=== PATIENT | female | born 1960 | race American Indian/Alaskan Native ===

== ENCOUNTER 2020-12-07 22:06 | Emergency (ER) | payer SELFPAY ==
[2020-12-07 22:15] VITALS: BP 120/79; PULSE 95; RESP 20; TEMP 36.9; O2SAT 100
[2020-12-07 22:23] VITALS: BP 120/79; PULSE 95; RESP 18; TEMP 36.3; O2SAT 100
[2020-12-07 22:49] VITALS: RESP 18
[2020-12-07 22:53] VITALS: BP 128/78; PULSE 72; RESP 18; O2SAT 98
[2020-12-07 23:02] LABS: Basophils Percent Auto 0.5 % (0.2-1.2); Eosinophils Percent Auto 0.9 % (0-4.4); Hematocrit 42.7 % (37.0-47.0); Immature Granulocyte Absolute 0.01 K/mm3 (0.00-0.031); Immature Granulocyte Percent A 0.2 % (0-0.5); Lymphocytes Absolute Auto 2.01 K/mm3 (0.9-3.2); Lymphocytes Percent Auto 47.6 % (18.3-44.2); Mean Corpuscular HGB Conc 32.8 g/dl (32-36); Mean Corpuscular Volume 91.4 fl (80-100); Monocytes Absolute Auto 0.6 K/mm3 (0.1-0.6); Monocytes Percent Auto 13.7 % (2.6-8.5); Neutrophils Absolute Auto 1.6 K/mm3 (1.3-6.7); Neutrophils Percent Auto 37.1 % (45.5-73.1); Platelet Count Result 372 k/mm3 (150-375); Red Blood Count 4.67 M/mm3 (4.2-5.4); Red Cell Distribution Width 12.4 % (11.5-14.5); White Blood Count 4.2 K/mm3 (4.5-10.0)
[2020-12-07 23:15] LABS: Alanine Aminotransferase 57 U/L (4-35); Albumin Level 4.1 g/dL (3.5-5.1); Alkaline Phosphatase 80 U/L (38-126); Anion Gap 3 mmol/L (8-16); Aspartate Amino Transferase 50 U/L (14-36); Bilirubin,Total 0.3 mg/dL (0.2-1.3); Blood Urea Nitrogen 11 mg/dL (7-17); Carbon Dioxide 31 mmol/L (22-30); Chloride 104 mmol/L (98-107); Estimated CRCL calculation 57 ml/min; Estimated Glomerular Filt Rate > 60; Glucose 98 mg/dL (65-105); Sodium 138 mmol/L (137-145)
--- NOTE | 2020-12-07 23:27 | ECG_ITS ---
Measurements Intervals [place] Rate: 63 P: 60 SC: 170 QRS: 76 QRSD: 81 T: 70 QT: 414 QTc: 424 Interpretive Statements SINUS RHYTHM INCOMPLETE RIGHT BUNDLE BRANCH BLOCK BORDERLINE ECG Electronically Signed On 12-08-2020 7:02:17 CDT by Guevara Pulido D.O.
[2020-12-07 23:30] LABS: Atypical Lymphocytes Present; Platelet Estimate Adequate (Adequate)
[2020-12-08] VITALS: BP 150/82; PULSE 72; RESP 16; O2SAT 97
[2020-12-08] MEDS: SODIUM CHLORIDE 0.9% IV 1,000 ML 999 ML IV CONT (00:54)
[2020-12-08 01:03] VITALS: BP 119/67; PULSE 80; RESP 28; O2SAT 96
[2020-12-08 01:16] LABS: Add Urine Microscopic? YES; Appearance Urine Cloudy (Clear); Bacteria Urine Trace /hpf; Bilirubin Urine Negative (Negative); Blood Urine Negative (Negative); Color Urine Yellow (Yellow); Glucose Urine UA Negative (Negative); Ketones Urine Negative (Negative); Leukocyte Esterase Ur Negative LEU/UL (Negative); Mucus Urine Rare /lpf; Nitrate Urine Negative (Negative); Protein Urine Negative (Negative); RBC Urine 0-2 /hpf (0-2); Specific Grav Ur 1.017 (1.001-1.035); Squamous Epithelial Cell Urine Moderate /hpf (Few); Urobilinogen Urine Negative mg/dL (<2.0); WBC Urine 0-3 /hpf
[2020-12-08 01:21] LABS: Lipase 201 U/L (23-300); Magnesium 2.1 mg/dL (1.6-2.3)
[2020-12-08 01:34] LABS: Troponin I < 0.012 ng/mL (0.000-0.034)
--- NOTE | 2020-12-08 01:42 | ED.GENADULT ---
HPI - General Adult General Chief complaint: Unspecified Stated complaint: Feel weird when I stand up Time Seen by Provider: 12/07/20 23:23 History of Present Illness HPI narrative: Patient 60-year-old female presents emerged department chief complaint of feeling lightheaded and generalized malaise. The patient reports has been going on for several days patient denies chest pain denies shortness of breath denies abdominal pain vomiting or diarrhea. Review of Systems Review of Systems: Narrative: A 10 system review of systems was completed on the patient and is negative except for what is stated in the HPI. Nursing and ancillary documentation was reviewed. PMFSH Social History Social History Gender identity (if verbalized by the patient): Female Comments Patient denies significant past medical history Social history: Patient denies smoking Exam Narrative: Exam Narrative: GENERAL: Well-appearing, well-nourished, and in no acute distress. HEAD: Normocephalic, atraumatic. EYES: PERRLA and EOMI. ENT: Nares clear, no rhinorrhea or epistaxis. Mucous membranes moist. NECK: Supple. CHEST: Clear to auscultation. No respiratory distress. HEART: Regular rate and rhythm. No murmur heard. Normal peripheral pulses. ABDOMEN: Soft, nontender, nondistended, normal active bowel sounds. EXTREMITIES: Normal range of motion. No edema. SKIN: Warm, dry, no rash. NEURO: No focal deficits. Alert and oriented x3. PSYCH: Normal mood and affect. Course Vital Signs Vital signs: Vital Signs Temperature 36.9 C 12/07/20 22:15 Pulse Rate 95 12/07/20 22:15 Respiratory Rate 20 12/07/20 22:15 Blood Pressure 120/79 12/07/20 22:15 Pulse Oximetry 100 12/07/20 22:15 Temperature 36.3 C L 12/07/20 22:23 Pulse Rate 80 12/08/20 01:03 Respiratory Rate 28 H 12/08/20 01:03 Blood Pressure 119/67 12/08/20 01:03 Pulse Oximetry 96 12/08/20 01:03 Medical Decision Making Vital Signs Vital Signs: Vital Signs Temperature 36.9 C 12/07/20 22:15 Pulse Rate 95 12/07/20 22:15 Respiratory Rate 20 12/07/20 22:15 Blood Pressure 120/79 12/07/20 22:15 Pulse Oximetry 100 12/07/20 22:15 Temperature 36.3 C L 12/07/20 22:23 Pulse Rate 80 12/08/20 01:03 Respiratory Rate 28 H 12/08/20 01:03 Blood Pressure 119/67 12/08/20 01:03 Pulse Oximetry 96 12/08/20 01:03 Lab Data Result diagrams: 12/07/20 22:52 12/07/20 22:52 Labs: Lab Results 12/07/20 12/07/20 12/07/20 Range/Units 22:51 22:52 22:52 WBC 4.2 L (4.5-10.0) K/mm3 RBC 4.67 (4.2-5.4) M/mm3 Hgb 14.0 (12.0-15.0) g/dL Hct 42.7 (37.0-47.0) % MCV 91.4 (80-100) fl MCH 30.0 (26-34) pg MCHC 32.8 (32-36) g/dl RDW 12.4 (11.5-14.5) % Plt Count 372 (150-375) k/mm3 MPV 9.0 (7.4-10.4) fl Immature Gran % (Auto) 0.2 (0-0.5) % Neut % (Auto) 37.1 L (45.5-73.1) % Lymph % (Auto) 47.6 H (18.3-44.2) % [place] % (Auto) 13.7 H (2.6-8.5) % Eos % (Auto) 0.9 (0-4.4) % Baso % (Auto) 0.5 (0.2-1.2) % Lymph # (Auto) 2.01 (0.9-3.2) K/mm3 [place] # (Auto) 0.6 (0.1-0.6) K/mm3 Eos # (Auto) 0.0 (0-0.3) K/mm3 Baso # (Auto) 0.0 (0.0-0.1) K/mm3 Abs Immat Gran (auto) 0.01 (0.00-0.031) K/mm3 Absolute Neuts (auto) 1.6 (1.3-6.7) K/mm3 Absolute Nucleated RBC 0.0 (0.0-0.012) K/mm3 Nucleated RBC % 0.0 (0.0-0.2) % Atypical Lymphocytes Present Platelet Estimate Adequate (Adequate) Sodium 138 (137-145) mmol/L Potassium 4.0 (3.4-5.0) mmol/L Chloride 104 (98-107) mmol/L Carbon Dioxide 31 H (22-30) mmol/L Anion Gap 3 L (8-16) mmol/L BUN 11 (7-17) mg/dL Creatinine 0.90 (0.7-1.0) mg/dL Estim Creat Clear Calc 57 ml/min Estimated GFR > 60 (59 - ) Glucose 98 (65-105) mg/dL Calcium 9.0 (8.4-10.2) mg/dL Magnesium 2.1 (1.6-2.3) mg/dL Total Bilirubin 0.3 (0.2-1.3) mg/dL
[2020-12-08 02:18] VITALS: BP 121/73; PULSE 81; RESP 16; TEMP 36.8; O2SAT 98
== END 2020-12-08 02:20 | disposition home or self-care (01) ==
PROVIDERS: Emergency Provider Emergency Medicine
DX: E86.0 Dehydration (principal); R53.1 Weakness; I45.10 Unspecified right bundle-branch block
CPT/HCPCS: 36415; 80053; 81001; 83690; 83735; 84484; 85025; 93005; 96360; 99284; J7030